=== PATIENT | male | born 1990 | race Caucasian/White ===

== ENCOUNTER 2017-01-21 00:24 | Emergency (ER) | payer OTHER ==
[~2017-01-21] VITALS: Ht 185.4 cm; Wt 74.8 kg
[~2017-01-21 00:24] MED LIST: ADVAIR DISKU 11 UNIT INH; ALBUTEROL0.09 MG/A1 INH; CATAPRES 0.1MG0.1 MG PO; CLONIDINE0.1 MG PO; DEPAKOTE125 M1; DEPAKOTE500 M1 PO; DIVALPROEX SOD500 M1 PO; DUONEB 3 MG/3 ML3 ML INH/SOL; MINIPRESS2 M1 PO; MOTRIN800 MG PO; NORCO 325 MG-51 TAB PO; PRAZOSIN HCL1 MG PO; PRAZOSIN HCL2 M1 PO; PREDNISONE 20MG20 MG PO; PREDNISONE10 MG PO; PROAIR HFA0.09 MG/Ac INH; PROVENTIL0.09 MG/A1 INH; QUETIAPINE FUM100 MG PO; STRATTERA40 M1 PO; SUBOXONE 2 MG-01 FIL SL; TRAZODONE HCL100 M1 PO; TRAZODONE150 MG PO; WELLBUTRIN XL150 MG PO; ZITHROMAX Z-PA250 M1 PO; ZITHROMAX Z-PA250 MG PO; ZOFRAN4 M1 PO
--- NOTE | 2017-01-21 00:43 | ED HEADACHE COMPLAINT ---
History of Present Illness General Chief Complaint: Headache Stated Complaint: HEADACHES AND DIZZY Source: patient Exam Limitations: no limitations Vital Signs & Intake/Output Vital Signs & Intake/Output Vital Signs Date Time Temp Pulse Resp B/P Pulse O2 O2 Flow FiO2 Ox Delivery Rate 01/21 0109 Room Air 01/21 0049 98.4 75 18 114/66 96 Room Air Allergies Coded Allergies: shellfish derived (Severe, ANAPHYLAXIS 01/21/17) Reconcile Medications Divalproex Sodium (Depakote) 500 MG TABLET.DR 1 TAB PO BID BIPOLAR Prazosin HCl (Minipress) 2 MG CAPSULE 1 CAP PO QPM PTSD Triage Nurses Notes Reviewed? yes Onset: Abrupt Duration: day(s): (3) Timing: multiple episodes today Quality/Severity: mild Head Injury Location: frontal No Modifying Factors: none Associated Symptoms: RELAPSED TO USING HEROIN 3 DAYS HPI: 26-year-old male with history of anxiety and PTSD who presents to the ER with his girlfriend for chief complaint of headaches for the last 3 days as well as as episodes of blacking out. Patient states he relapsed using heroin yesterday. He shot up yesterday and started today. Last episode of passing out was at midnight while he was in the bathroom yesterday. He denies that these blackout episodes are related to using his drugs. He states his headache started before that. He does feel lightheaded and dizzy. History of reported seizure-like activity per bystander. He has no formal history of seizures. 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 He does live denies using benzos at this time. Past History Travel History Traveled to [place] past 21 day No Medical History Any Pertinent Medical History? 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 No Review of Systems Review of Systems Constitutional: Reports: malaise. Denies: chills, fever. Eyes: Reports: no symptoms. Ears, Nose, Throat, Mouth: Reports: no symptoms. Respiratory: Denies: cough, short of breath. Cardiovascular: Reports: syncope. Denies: chest pain, palpitations. Gastrointestinal/Abdominal: Denies: abdominal pain. Genitourinary: Reports: no symptoms. Musculoskeletal: Reports: no symptoms. Skin: Reports: no symptoms. Neurological/Psychological: Reports: headache. Hematologic/Endocrine: Denies: bruising, bleeding, polyuria, polydipsia. Endocrine: Reports: no symptoms. Immunologic/Allergic: Reports: no symptoms. All Other Systems: Reviewed and Negative Physical Exam Physical Exam General Appearance: alert, awake, cachetic, thin Head: atraumatic, DRY SKIN ON CHEEKS AND OVER BRIDGE OF NOSE Eyes: Bilateral: PERRL, EOMI (3 MM BILATERAL PUPILS). Ears, Nose, Throat: normal pharynx, normal ENT inspection, hearing grossly normal Neck: normal inspection, supple, full range of motion Respiratory: normal breath sounds, chest non-tender, no respiratory distress Cardiovascular: regular rate/rhythm Gastrointestinal: soft, non-tender Extremities: normal inspection, normal range of motion, no edema Psychiatric: awake, alert, oriented x 3 Cranial Nerves: normal hearing, normal speech Coordination/Gait: normal gait Skin: intact, normal color, warm/dry Core Measures Severe Sepsis Present: No Septic Shock Present: No Progress Differential Diagnosis: HEROIN ABUSE, POLYSUBSTANCE ABUSE, ORTHOSTATIC SYNCOPE, DYSRHYTHMIA Plan of Care: Orders Procedure Date/time Status MISTAKE 01/22 52 Active URINE DRUGS OF ABUSE 01/22 52 Complete DEPAKOTE LEVEL 01/22 52 Complete COMPREHENSIVE METABOLIC PANEL 01/22 52 Complete CBC WITHOUT DIFFERENTIAL 01/22 52 Complete EKG 01/22 52 Active Laboratory Tests 01/21/17 0147: Urine Opiates Screen 2897.00 H, Methadone Screen < 40, Barbiturate Screen < 60, Ur Phencyclidine Scrn < 6.00, Amphetamines Screen < 100, U Benzodiazepines Scrn < 85, Urine Cocaine Screen > 1000 H, Urine Cannabis Screen > 80.00 H 01/21/17 0106: Anion Gap 5, Estimated GFR > 60, BUN/Creatinine Ratio 14.2, Glucose 87, Calcium 9.6, Total Bilirubin 0.3, AST 24, ALT 28, Alkaline Phosphatase 54, Total Protein 6.9, Albumin 4.0, Globulin 2.9, Albumin/Globulin Ratio 1.4, CBC w Diff NO MAN DIFF REQ, RBC 4.59 L, MCV 92.1, MCH 31.4 H, RDW 13.2, MPV 7.4, Gran % 59.8, Lymphocytes % 31.5, Monocytes % 6.9, Eosinophils % 1.5, Basophils % 0.3, Absolute Granulocytes 5.6, Absolute Lymphocytes 2.9, Absolute Monocytes 0.6, Absolute Eosinophils 0.1, Absolute Basophils 0, PUBS MCHC 34.1, Valproic Acid 42.7 L EKG, ORTHOSTATICS, LABS, DEPAKOTE LEVEL, UTOX. 2:02 AM Patient requesting discharge papers to leave the ER. No SI or HI. He does not want stay for the results of the urine toxicology. I informed him his Depakote level is low, and to follow up with his primary care doctor in the office. He does not want any information regarding his heroin abuse on his discharge summary. I will be giving him however a list of outpatient detox facilities. Patient ambulatory out of the ER with steady gait ([facility]) Initial ED EKG: NSR Departure Departure Time of Disposition: 200 Disposition: HOME OR SELF CARE Condition: Stable Clinical Impression Primary Impression: Dizziness Secondary Impressions: Heroin abuse Referrals: PATIENT HAS NO PRIMARY CARE DR (PCP/Family) Additional Instructions: FOLLOW UP WITH YOUR DOCTOR AND WITH THE ATTACHED LIST OF FACILITIES. Departure Forms: Customer Survey General Discharge Information
[2017-01-21 00:49] VITALS: BP 114/66
[2017-01-21 01:14] LABS: ABSOLUTE BASOPHIL COUNT 0 /CUMM (0.0-0.2); ABSOLUTE EOSINOPHIL COUNT 0.1 /CUMM (0.0-0.7); ABSOLUTE GRANULOCYTE CT 5.6 /CUMM (1.4-6.5); ABSOLUTE LYMPH COUNT 2.9 /CUMM (1.2-3.4); ABSOLUTE MONOCYTE COUNT 0.6 /CUMM (0.10-0.60); BASOPHIL % 0.3 % (0.0-2.0); EOSINOPHIL % 1.5 % (0-5); GRANULOCYTE % 59.8 % (42.2-75.2); HEMATOCRIT 42.2 % (42-52); MEAN CORPUSCULAR HGB 31.4 PG (27.0-31.0); MEAN CORPUSCULAR HGB CONC 34.1 G/DL (33.0-37.0); MEAN CORPUSCULAR VOLUME 92.1 FL (80.0-94.0); MEAN PLATELET VOLUME 7.4 FL (7.4-10.4); PLATELET COUNT 265 /CUMM (130-400); RBC DISTRIBUTION WIDTH 13.2 % (11.5-14.5); RED BLOOD CELL CT 4.59 /CUMM (4.70-6.10); WHITE BLOOD CELL COUNT 9.3 /CUMM (4.8-10.8)
== END 2017-01-21 02:04 ==
LOC: ERH 00:24
PROVIDERS: Emergency Medicine
DX: R42 Dizziness and giddiness (principal); F11.10 Opioid abuse, uncomplicated
CPT/HCPCS: 80307; 93005; 93010